=== PATIENT | male | born 1970 | race Caucasian/White ===

== ENCOUNTER → 2020-12-18 | Outpatient (CLI) | payer MEDICARE, OTHER ==
--- NOTE | 2020-12-18 16:01 | XR ---
EXAMINATION TYPE: XR chest 2V DATE OF EXAM: 12/18/2020 COMPARISON: NONE HISTORY: Presurgical testing TECHNIQUE: Frontal and lateral views of the chest are obtained. FINDINGS: There is no focal air space opacity, pleural effusion, or pneumothorax seen. The cardiac silhouette size is within normal limits. Right hemidiaphragm is mildly elevated. The osseous structu res are intact. IMPRESSION: No acute cardiopulmonary process.
[2020-12-18 22:50] LABS: HCT 47.5 % (39.6-50.0); HGB 14.6 g/dL (13.0-17.0); MCH 26.9 pg (27.0-32.0); MCHC 30.7 g/dL (32.0-37.0); MCV 87.5 fL (80.0-97.0); Mean Platelet Volume 11.2 fL (9.5-12.2); Platelet Count 347 X 10*3/uL (140-440); RBC 5.43 X 10*6/uL (4.40-5.60); RDW 14.6 % (11.5-14.5); WBC 11.17 X 10*3/uL (4.50-10.00)
[2020-12-18 23:26] LABS: Basophils # (M) 0.11 X 10*3/uL (0.00-0.10); Eosinophils # (M) 0 X 10*3/uL (0.04-0.35); Lymphocytes # (M) 2.57 X 10*3/uL (0.90-5.00); Monocytes # (M) 0.34 X 10*3/uL (0.20-1.00); Neutrophils # (M) 8.15 X 10*3/uL (2.00-8.90); Neutrophils % (M) 73 %
[2020-12-19 01:00] LABS: ALT 9 U/L (10-49); AST 19 U/L (14-35); African American GFR (CKD) 127.2 (60.0-200.0); Albumin/Globulin Ratio 1.35 (1.60-3.17); Alkaline Phosphatase 73 U/L (41-126); BUN/Creat Ratio 21.26 Ratio (12.00-20.00); Blood Urea Nitrogen 15.5 mg/dL (9.0-27.0); Calcium 9.6 mg/dL (8.7-10.3); Carbon Dioxide 23.5 mmol/L (21.6-31.8); Chloride 102 mmol/L (96-109); Globulin 2.9 g/dL (1.6-3.3); Glucose 92 mg/dL (70-110); LDL Cholesterol,Calculated 102.9 mg/dL (0.0-131.0); Non-African American GFR(CKD) 109.8 (60.0-200.0); Potassium 3.5 mmol/L (3.5-5.5); Sodium 142 mmol/L (135-145); Total Bilirubin <0.20 mg/dL (0.30-1.20); Total Protein 6.9 g/dL (6.2-8.2)
== END | disposition home or self-care (01) ==
LOC: LABWHC1 14:33
PROVIDERS: ATTEND Internal Medicine
DX: I10 Essential (primary) hypertension (principal); E66.01 Morbid (severe) obesity due to excess calories; J45.909 Unspecified asthma, uncomplicated; R53.82 Chronic fatigue, unspecified
CPT/HCPCS: 36415; 71046; 80053; 80061; 83036; 84439; 84443; 84481; 85025

== ENCOUNTER 2021-02-01 11:54 | Inpatient (IN) | payer MEDICARE, OTHER ==
[2021-02-01] MEDS ORDERED: IBUPROFEN 600 MG TAB PO STA (12:23)
[2021-02-01] MEDS ORDERED: ACETAMINOPHEN TAB 500 MG TAB PO STA (12:23)
[2021-02-01] MEDS ORDERED: DEXAMETHASONE SOD PHOSPHATE 10 MG/ML 1 ML VIAL IVP STA (12:25)
--- NOTE | 2021-02-01 12:27 | ED ---
General Adult HPI - General Chief complaint: Shortness of Breath Stated complaint: PALMER Time Seen by Provider: 02/01/21 12:00 Source: patient, RN notes reviewed, old records reviewed Mode of arrival: EMS Limitations: no limitations - History of Present Illness Initial comments: This is a 50-year-old male who presents emergency department stating that for the last week he has not been feeling well. Patient states he has a cough shortness of breath. Patient states over the last 2 days the symptoms got considerably worse. Patient states she's had a fever and chills. Patient states his brother has cold as does his daughter. Patient states that he did not get the COVID vaccine or the flu. Denies any chest pain. Patient denies any palpitations. Patient denies abdominal pain patient as nausea vomiting diarrhea. 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 - Related Data Home Medications Medication Instructions Recorded Confirmed Theophylline 12 Hour [Christiano-Dur] 300 mg PO BID 06/20/13 06/05/14 Verapamil HCl [Verapamil ER] 240 mg PO DAILY 06/20/13 06/05/14 hydroCHLOROthiazide [Hydrodiuril] 50 mg PO DAILY 06/20/13 06/05/14 Cholecalciferol (Vitamin D3) 5,000 units PO BID 06/04/14 06/05/14 [Vitamin D3] Cyanocobalamin [Vitamin B-12 1,000 mcg PO DAILY 06/04/14 06/05/14 Injection] Ibuprofen [Motrin] 800 mg PO Q8HR PRN 06/04/14 06/05/14 Potassium Gluconate [Potassium 595 mg PO BID 06/04/14 06/05/14 Gluconate ER] Ubidecarenone [Co Q-10] 30 mg PO DAILY 06/04/14 06/05/14 Vitamin B Complex 1 cap PO DAILY 06/04/14 06/05/14 Coral Calcium 500mg Caps 500 mg PO BID 06/05/14 06/05/14 Folic Acid 800mcg 800 mcg PO DAILY 06/05/14 06/05/14 Healthy Eyes Cap 1 each PO DAILY 06/05/14 06/05/14 Salmeterol Xinafoate [Serevent 1 puff IH DAILY PRN 06/05/14 06/05/14 Diskus] Previous Rx's Medication Instructions Recorded Ibuprofen [Motrin] 800 mg PO TID tab 06/06/14 Allergies Allergy/AdvReac Type Severity Reaction Status Date / Time meperidine HCl [From Demerol] Allergy Unknown Verified 02/01/21 12:37 codeine AdvReac Hallucinati Verified 02/01/21 12:37 ons Review of Systems ROS Statement: Those systems with pertinent positive or pertinent negative responses have been documented in the HPI. ROS Other: All systems not noted in ROS Statement are negative. Past Medical History Past Medical History: Asthma, Hypertension Additional Past Medical History / Comment(s): OBESITY History of Any Multi-Drug Resistant Organisms: None Reported Past Surgical History: No Surgical Hx Reported Past Psychological History: No Psychological Hx Reported Smoking Status: Never smoker Past Alcohol Use History: Occasional Past Drug Use History: None Reported General Exam - General Exam Comments Initial Comments: GENERAL: Patient is well-developed and well-nourished. Patient is nontoxic and well- hydrated and is in mild distress. ENT: Neck is soft and supple. No significant lymphadenopathy is noted. Oropharynx is clear. Moist mucous membranes. Neck has full range of motion without eliciting any pain. EYES: The sclera were anicteric and conjunctiva were pink and moist. Extraocular movements were intact and pupils were equal round and reactive to light. Eyelids were unremarkable. PULMONARY: Unlabored respirations. Good breath sounds bilaterally. No audible rales rhonchi or wheezing was noted. CARDIOVASCULAR: There is a regular rate and rhythm without any murmurs gallops or rubs. ABDOMEN: Soft and nontender with normal bowel sounds. SKIN: Skin is clear with no lesions or rashes and otherwise unremarkable. NEUROLOGIC: Patient is alert and oriented x3. Cranial nerves II through XII are grossly intact. Motor and sensory are also intact. Normal speech, volume and content. Symmetrical smile. MUSCULOSKELETAL: Normal extremities with adequate strength and full range of motion. Chronic cellulitis and lymphedema of bilateral legs. LYMPHATICS: No significant lymphadenopathy is noted PSYCHIATRIC: Normal psychiatric evaluation. Limitations: no limitations Course Vital Signs 02/01/21 02/01/21 02/01/21 12:02 12:17 12:18 Temperature 101.3 F H Pulse Rate 104 H Respiratory 24 24 Rate Blood Pressure 152/88 O2 Sat by Pulse 89 L 94 L Oximetry 02/01/21 02/01/21 12:35 13:42 Temperature 99.5 F Pulse Rate 97 Respiratory 22 Rate Blood Pressure 131/84 O2 Sat by Pulse 91 L 90 L Oximetry Medical Decision Making - Medical Decision Making Chest x-ray shows bilateral infiltrates Patient received Motrin and Tylenol and Decadron in the emergenc EKG shows normal sinus rhythm at 92 bpm ME interval 166 QRS is 110 QT interval 370 QTC is 457. Patient's EKG shows Q waves in 3 and aVF. y department. Patient also received monoclonal antibodies. After the monoclonal antibodies were given the patient was unable to maintain his sats above 90 and it was at this point time that I decided the patient needed to be admitted. I spoke with Dr. Moreno he agreed to place the patient observation. - Lab Data Result diagrams: 02/01/21 12:02/01/21 12:30 Lab Results 02/01/21 02/01/21 02/01/21 Range/Units 12:17 12:30 12:30 WBC 4.4 (3.8-10.6) k/uL RBC 4.73 (4.30-5.90) m/uL Hgb 13.7 (13.0-17.5) gm/dL Hct 40.6 (39.0-53.0) % MCV 85.7 (80.0-100.0) fL MCH 28.9 (25.0-35.0) pg MCHC 33.7 (31.0-37.0) g/dL RDW 13.7 (11.5-15.5) % Plt Count 167 (150-450) k/uL MPV 8.5 Neutrophils % 75 % Lymphocytes % 18 % Monocytes % 6 % Eosinophils % 0 % Basophils % 0 % Neutrophils # 3.3 (1.3-7.7) k/uL Lymphocytes # 0.8 L (1.0-4.8) k/uL Monocytes # 0.3 (0-1.0) k/uL Eosinophils # 0.0 (0-0.7) k/uL Basophils # 0.0 (0-0.2) k/uL Sodium 132 L (137-145) mmol/L Potassium 3.3 L (3.5-5.1) mmol/L Chloride 96 L (98-107) mmol/L Carbon Dioxide 27 (22-30) mmol/L Anion Gap 9 mmol/L BUN 12 (9-20) mg/dL Creatinine 0.59 L (0.66-1.25) mg/dL Est GFR (CKD-EPI)AfAm >90 (>60 ml/min/1.73 sqM) Est GFR (CKD-EPI)NonAf >90 (>60 ml/min/1.73 sqM) Glucose 126 H (74-99) mg/dL Calcium 8.2 L (8.4-10.2) mg/dL Total Bilirubin 0.5 (0.2-1.3) mg/dL AST 48 (17-59) U/L ALT 14 (4-49) U/L Alkaline Phosphatase 49 (38-126) U/L Total Protein 6.3 (6.3-8.2) g/dL Albumin 3.2 L (3.5-5.0) g/dL Coronavirus (PCR) Detected A (Not Detectd) Disposition Clinical Impression: Pneumonia due to COVID-19 virus Disposition: ADMITTED IP TO THIS [facility] Referrals: Francisca Torrez MD [Primary Care Provider] - 1-2 days Time of Disposition: 13:13
[2021-02-01 12:41] LABS: Basophils % (A) 0 %; Eosinophils % (A) 0 %; HCT 40.6 % (39.0-53.0); HGB 13.7 gm/dL (13.0-17.5); Lymphocytes # (A) 0.8 k/uL (1.0-4.8); Lymphocytes % (A) 18 %; MCH 28.9 pg (25.0-35.0); MCHC 33.7 g/dL (31.0-37.0); MCV 85.7 fL (80.0-100.0); Mean Platelet Volume 8.5; Monocytes # (A) 0.3 k/uL (0-1.0); Monocytes % (A) 6 %; Neutrophils # (A) 3.3 k/uL (1.3-7.7); Neutrophils % (A) 75 %; Platelet Count 167 k/uL (150-450); RBC 4.73 m/uL (4.30-5.90); RDW 13.7 % (11.5-15.5); WBC 4.4 k/uL (3.8-10.6)
[2021-02-01 12:55] LABS: ALT 14 U/L (4-49); AST 48 U/L (17-59); African American GFR (CKD) >90 (>60 ml/min/1.73 sqM); Albumin 3.2 g/dL (3.5-5.0); Alkaline Phosphatase 49 U/L (38-126); Anion Gap 9 mmol/L; Blood Urea Nitrogen 12 mg/dL (9-20); Calcium 8.2 mg/dL (8.4-10.2); Carbon Dioxide 27 mmol/L (22-30); Chloride 96 mmol/L (98-107); Glucose 126 mg/dL (74-99); Non-African American GFR(CKD) >90 (>60 ml/min/1.73 sqM); Potassium 3.3 mmol/L (3.5-5.1); Sodium 132 mmol/L (137-145); Total Bilirubin 0.5 mg/dL (0.2-1.3); Total Protein 6.3 g/dL (6.3-8.2)
--- NOTE | 2021-02-01 13:03 | XR ---
EXAMINATION TYPE: XR chest 2V DATE OF EXAM: 02/01/2021 COMPARISON: 12/18/2020 TECHNIQUE: PA and lateral views submitted. HISTORY: Difficulty breathing FINDINGS: Diffuse bilateral interstitial infiltrates with areas of subsegmental consolidation. Small right effu mars. No pneumothorax. Limited inspiration. Heart size normal. Degenerative change of the spine. IMPRESSION: 1. Bilateral infiltrate correlate for interstitial and alveolar pneumonia.
[2021-02-01] MEDS ORDERED: SODIUM CHLORIDE 0.9% 50 ML IVPB ONE (13:30)
[2021-02-01] MEDS ORDERED: BAMLANIVIMAB (EUA) 700 MG, ETESEVIMAB (EUA) 1,400 MG in SODIUM CHLORIDE 0.9% 50 ML IVPB ONE (13:30)
[2021-02-01] MEDS ORDERED: ALPRAZolam 0.25 MG TAB PO PRN (15:53)
[2021-02-01] MEDS ORDERED: Magnesium Replacement Protocol 1 EACH MISC MISCELLANE PRN (16:08)
[2021-02-01] MEDS ORDERED: Potassium Replacement Protocol 1 EACH MISC MISCELLANE PRN (16:08)
--- NOTE | 2021-02-01 16:51 | HP ---
HISTORY AND PHYSICAL DATE OF SERVICE: 02/01/2021 CHIEF COMPLAINT: Shortness of breath and cough. HISTORY OF PRESENT ILLNESS: This 50-year-old gentleman with a past medical history of multiple medical problems including asthma, hypertension, obesity, history of chronic venous stasis and chronic leg ulcers, being followed by Dr. Torrez in the outpatient setting, not feeling well for the past 1 week. The patient has some cough, some shortness of breath. The patient also having some fever and chills. The patient did not get the Covid vaccine. Patient apparently had contact with family members who had Covid and the patient came to [facility] and admitted to the hospital for further evaluation and treatment. The evaluation showed pulse ox is about 91% on 3 L and CBC within normal limits except lymphopenia. Sodium is 132. Covid 19 positive and the patient admitted for further evaluation and treatment. A chest x-ray was done which I reviewed personally in the ER showed probably bilateral Covid 19 early pneumonia and the patient admitted for further evaluation and treatment. A consultation of BAM is also being done at this time. There is no history of any headache, loss of consciousness or seizures at this time. No chest pain. No palpitations. PAST MEDICAL HISTORY: Asthma, hypertension, obesity. MEDICATIONS PRIOR TO ADMISSION: Home medications are reviewed and include: HydroDIURIL, verapamil, Christiano-Dur, Singulair, Motrin, iron sulfate, Zyrtec, doses reviewed. ALLERGIES: HONEY, CODEINE, PORK, SHELLFISH. FAMILY HISTORY: No history of heart disease or strokes in the family. SOCIAL HISTORY: Occasional alcohol intake. No history of smoking. REVIEW OF SYSTEMS: ENT: No diminished vision. No diminished hearing. CARDIOVASCULAR system as mentioned earlier. RESPIRATORY: As mentioned earlier. GI no nausea or vomiting. no dysuria. NERVOUS SYSTEM: No numbness or weakness. ALLERGY/IMMUNOLOGY: As mentioned earlier. HEMATOLOGY/ONCOLOGY: No history of any anemia. ENDOCRINE: No history of diabetes or hypothyroidism. CONSTITUTIONAL: As mentioned earlier. DERMATOLOGY: Negative. RHEUMATOLOGY: Negative. PSYCHIATRIC: As mentioned earlier. PHYSICAL EXAMINATION: Alert and oriented times three. Pulse 97, blood pressure 131/84, respiration 22, temperature 99.4, pulse ox 93 percent on 3 L. HEENT: Conjunctivae normal. Oral mucosa moist. NECK is no jugular venous distention. No carotid bruit. No lymph node enlargement. CARDIOVASCULAR: S1, S2. RESPIRATION: Breath sounds diminished in the bases. A few scattered rhonchi. ABDOMEN: Soft, obese, nontender. LEGS: Bilateral leg edema. Chronic leg ulcers and significant chronic changes also present. The patient is morbidly obese. NERVOUS SYSTEM: Higher functions as mentioned earlier. No focal motor or sensory deficits. LYMPHATICS: No lymph nodes palpable in the neck, axillae or groin. SKIN: Skin as mentioned. JOINTS: No active deforming arthropathy. LABS: CBC within normal limits except lymphopenia 0.9. Sodium 132. Potassium 3.2. Other labs are noted. Chest x-ray personally reviewed. ASSESSMENT: 1. Acute Covid 19 infection with acute bilateral interstitial pneumonia with acute hypoxic respiratory failure. 2. Lymphopenia. 3. Hyponatremia. 4. Hypokalemia. 5. Super morbid obesity with body mass index of 77.8. 6. History of asthma, chronic, intermittent. 7. Hypertension. 8. Obesity. 9. FULL CODE. RECOMMENDATIONS AND DISCUSSION: This 50-year-old gentleman who presented with multiple complex medical issues, we will monitor the patient closely. Continue the current management and symptomatic treatment. Otherwise at this time, we will initiate steroids and Lovenox and usual Covid protocol. Pulmonary and Infectious Disease evaluation. Patient might be a candidate for BAM or Remdesivir or a combination of both. We will continue to monitor. Prognosis extremely guarded because of the multiple complex medical issues. Further recommendations to follow. See orders for details. A copy of dictation forwarded to Dr. Torrez who is the primary physician. MMODL / IJN: [id number] /
[2021-02-01] MEDS: CHOLECALCIFEROL 25 MCG (1000 IU) TABLET PO SCH (17:59)
[2021-02-01] MEDS: ASCORBIC ACID 500 MG TAB PO SCH (17:59)
[2021-02-01] MEDS: ENOXAPARIN 40 MG/0.4 ML SYRINGE SQ SCH (18:00)
[2021-02-01] MEDS: ZINC SULFATE 220 MG CAP PO SCH (18:00)
[2021-02-01 18:11] LABS: C Reactive Protein 5.5 mg/dL (<1.0)
[2021-02-01] MEDS ORDERED: ALBUTEROL HFA INHALER INHALATION SCH (20:00)
[2021-02-01] MEDS ORDERED: REMDESIVIR 200 MG in SODIUM CHLORIDE 0.9% 250 ML IVPB ONE (21:00)
[2021-02-01] MEDS ORDERED: VERAPAMIL SR 120 MG TABLET.ER PO SCH (21:00)
--- NOTE | 2021-02-01 23:15 | P.CONS ---
History of Present Illness - Reason for Consult Consult date: 02/01/21 covid 19 pneumonia Requesting physician: Saige Moreno - Chief Complaint shortness of breath worse x 2 days - History of Present Illness History of present illness : Patient is 50-year-old male with a past medical significant bilateral extremity elephantiasis in this patient presenting to the ER this afternoon for evaluation of not feeling well increasing shortness of breath and a cough in this patient symptom is going on for about a week however over the last 2 days patient symptom has been getting worse, patient been complaining of increasing shortness of breath on minimal exertion and even at rest patient also have a cough which is moderate intensity no purulent sputum no pleuritic chest pain nausea decreased oral intake but no vomiting no abdominal pain did have some diarrhea on presentation the hospital did have a fever of 101 F patient was hypoxic with O2 sats of 89% on room air patient did have a normal white count with lymphopenia D-dimer was normal creatinine was normal liver exams are normal CRP was elevated did have a positive Covid test patient did have a chest x-ray bilateral infiltrate correlate for this patient and if Pneumonia patient was admitted to hospital infectious disease was consulted for further management Review of system: CONSTITUTIONAL: Positive for weakness along with the fever. EYES: No complaint. ENT: No complaint. RESPIRATORY: As per history of present illness CARDIOVASCULAR: No complaint. GENITOURINARY: No complaint. GASTROINTESTINAL: As per history of present illness. MUSCULOSKELETAL: No complaint. INTEGUMENTARY: No complaint. PSYCHOLOGIC: No complaint. ENDOCRINE: No complaint. NEUROLOGIC: No complaint. Past medical history : Reviewed, documented below Past surgical history : Reviewed, documented below Social history: Reviewed, documented below Medications: Reviewed, as documented below EXAMINATION: Vital sigans= Reviewed and documented below GENERAL DESCRIPTION: Middle-aged male lying in bed, no distress. No tachypnea or accessory muscle of respiration use. HEENT: Shows Pallor , no scleral icterus. Oral mucous membrane is dry. NECK: Trachea central, no thyromegaly. LUNGS: Unlabored breathing. Decrease intensity of breath sounds. No wheeze or crackle. HEART: S1, S2, regular rate and rhythm. ABDOMEN: Soft, no tenderness , guarding or rigidity EXTREMITIES: Significant swelling to bilateral lower extremity in this we did have some superficial skin right leg no slough tissue or drainage SKIN: No rash, no masses palpable. NEUROLOGICAL: The patient is awake, alert, oriented x3, mood and affect normal. LABS AND RADIOLOGY: Reviewed results see below Assessment : 1-patient presented to hospital with weakness increasing shortness of breath cough in this patient symptom has been going on for about a week worsening over the last 2 days with evidence of multifocal pneumonia secondary to COVID-19 infection and the patient is currently within the therapeutic window for remdesivir 2-bilateral lower extremity elephantiasis with some superficial ulcer right leg no significant cellulitis Plan: 1-patient was started on remdesivir 5-day protocol 2-dexamethasone her Lovenox zinc and ascorbic acid 3-droplet isolation respiratory support 4-Aquacel silver dressing to the right lower extremity wound change every 48 hour We will follow on clinical condition and cultures to further adjust medication if needed Thank you for this consultation we will follow the patient along with you Past Medical History Past Medical History: Asthma, Hypertension Additional Past Medical History / Comment(s): OBESITY History of Any Multi-Drug Resistant Organisms: None Reported Past Surgical History: No Surgical Hx Reported Past Psychological History: No Psychological Hx Reported Smoking Status: Never smoker Past Alcohol Use History: Occasional Past Drug Use History: None Reported Medications and Allergies Home Medications Medication Instructions Recorded Confirmed Type Theophylline 12 Hour [Christiano-Dur] 300 mg PO BID 06/20/13 02/01/21 History Cetirizine HCl [Zyrtec] 10 mg PO DAILY 02/01/21 02/01/21 History Ferrous Sulfate [Feosol] 325 mg PO DAILY 02/01/21 02/01/21 History Ibuprofen [Motrin] 800 mg PO Q8H PRN 02/01/21 02/01/21 History Montelukast [Singulair] 10 mg PO HS 02/01/21 02/01/21 History Verapamil HCl [Verapamil ER] 240 mg PO HS 02/01/21 02/01/21 History hydroCHLOROthiazide [Hydrodiuril] 25 mg PO BID 02/01/21 02/01/21 History Allergies Allergy/AdvReac Type Severity Reaction Status Date / Time honey Allergy Anaphylaxis Verified 02/01/21 14:02 meperidine HCl [From Demerol] Allergy Unknown Verified 02/01/21 13:58 codeine AdvReac Hallucinati Verified 02/01/21 13:58 ons Pork/Porcine Containing AdvReac Vomiting Verified 02/01/21 14:02 Products [Pork] shellfish derived [Shellfish] AdvReac Vomiting Verified 02/01/21 14:02 Physical Exam Vitals: Vital Signs Temp Pulse Resp BP Pulse Ox 02/01/21 13:42 99.5 F 97 22 131/84 90 L 02/01/21 12:35 91 L 02/01/21 12:18 24 02/01/21 12:17 94 L 02/01/21 12:02 101.3 F H 104 H 24 152/88 89 L Intake and Output 02/01/21 02/01/21 02/01/21 06:59 14:59 22:59 Other: Weight 245.847 kg Results CBC & Chem 7: 02/01/21 12:30 02/01/21 12:30 Labs: Abnormal Lab Results - Last 24 Hours (Table) 02/01/21 02/01/21 02/01/21 Range/Units 12:17 12:30 12:30 Lymphocytes # 0.8 L (1.0-4.8) k/uL Sodium 132 L (137-145) mmol/L Potassium 3.3 L (3.5-5.1) mmol/L Chloride 96 L (98-107) mmol/L Creatinine 0.59 L (0.66-1.25) mg/dL Glucose 126 H (74-99) mg/dL Calcium 8.2 L (8.4-10.2) mg/dL Albumin 3.2 L (3.5-5.0) g/dL Coronavirus (PCR) Detected A (Not Detectd)
[2021-02-01] MEDS: hydroCHLOROthiazide 25 MG TAB PO SCH (23:51)
[2021-02-01] MEDS: THEOPHYLLINE 24 HOUR 300 MG CAP.ER.24H PO SCH (23:51)
[2021-02-01] MEDS: MONTELUKAST 10 MG TAB PO SCH (23:53)
[2021-02-02] MEDS: ASCORBIC ACID 500 MG TAB PO SCH ×3 (01:13→21:01)
[2021-02-02] MEDS: ZINC SULFATE 220 MG CAP PO SCH (08:19)
[2021-02-02] MEDS: LORATADINE 10 MG TAB PO SCH (08:20)
[2021-02-02] MEDS: CHOLECALCIFEROL 25 MCG (1000 IU) TABLET PO SCH (08:20)
[2021-02-02] MEDS: hydroCHLOROthiazide 25 MG TAB PO SCH ×2 (08:20→21:01)
[2021-02-02] MEDS: ENOXAPARIN 40 MG/0.4 ML SYRINGE SQ SCH (08:20)
[2021-02-02] MEDS: PANTOPRAZOLE 40 MG TABLET PO SCH (08:20)
[2021-02-02] MEDS: FERROUS SULFATE 325 MG TAB PO SCH (08:20)
[2021-02-02] MEDS: dexAMETHasone 2 MG TAB PO SCH (08:20)
[2021-02-02] MEDS: ALBUTEROL HFA INHALER INHALATION SCH ×4 (09:38→21:41)
[2021-02-02 10:55] LABS: Basophils # (A) 0.01 X 10*3/uL (0.00-0.10); Basophils % (A) 0.2 %; Eosinophils # (A) 0 X 10*3/uL (0.04-0.35); Eosinophils % (A) 0 %; HCT 42.1 % (39.6-50.0); HGB 13.4 g/dL (13.0-17.0); Lymphocytes # (A) 0.77 X 10*3/uL (0.90-5.00); Lymphocytes % (A) 13.9 %; MCH 27.2 pg (27.0-32.0); MCHC 31.8 g/dL (32.0-37.0); MCV 85.4 fL (80.0-97.0); Mean Platelet Volume 11.2 fL (9.5-12.2); Monocytes # (A) 0.47 X 10*3/uL (0.20-1.00); Monocytes % (A) 8.5 %; Neutrophils # (A) 4.22 X 10*3/uL (1.80-7.70); Neutrophils % (A) 76.3 %; Platelet Count 170 X 10*3/uL (140-440); RBC 4.93 X 10*6/uL (4.40-5.60); RDW 13.6 % (11.5-14.5); WBC 5.53 X 10*3/uL (4.50-10.00)
[2021-02-02] MEDS: METOPROLOL TARTRATE 25 MG TAB PO SCH ×2 (11:20→21:01)
--- NOTE | 2021-02-02 11:25 | P.CRDCN ---
History of Present Illness Consult date: 02/02/21 History of present illness: CHIEF COMPLAINT: V. tach HISTORY OF PRESENT ILLNESS: This is a 50-year-old male with a past medical history significant for asthma, hypertension, and morbid obesity. 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 We have been asked to see the patient in consultation for ventricular tachycardia. The patient presented to the hospital with a chief complaint of not feeling well, cough, shortness of breath, and fever. The patient was found to be positive for Covid. The patient is not vaccinated. Patient remains hemodynamically stable. He is on 2 L nasal cannula with oxygen saturations greater than 92%. Blood pressure 154/76. Heart rate is in the 70s. Telemetry reveals sinus mechanism. He did have a run of nonsustained ventricular tachycardia. DIAGNOSTICS: EKG reveals sinus rhythm with nonspecific ST-T wave changes Chest xray bilateral infiltrates. Correlate for interstitial and alveolar pneumonia. Laboratory data: WBC 5.5. Hemoglobin 13.4. White count 170. D-dimer 0.55. Sodium 132. Potassium 3.3. BUN 12. Creatinine 0.59. Troponin negative 2. Current home cardiac medications include []. REVIEW OF SYSTEMS: Thorough review of systems not completed secondary to limited evaluation/examination due to Covid19 PHYSICAL EXAM: Thorough physical exam not completed secondary to limited evaluation/examination due to Covid19 ASSESSMENT: Covid pneumonia Nonsustained ventricle tachycardia Hypokalemia Asthma Hypertension Morbid obesity: BMI 77.8 PLAN: Obtain 2D echo to assess cardiac structure and function Continue telemetry monitoring Patient's potassium was supplemented yesterday. Await repeat labs from this morning Discontinue verapamil Begin metoprolol 25 mg twice a day Further recommendations pending patient's course Nurse practitioner note has been reviewed by physician. Signing provider agrees with the documented findings, assessment, and plan of care. Past Medical History Past Medical History: Asthma, Hypertension Additional Past Medical History / Comment(s): OBESITY History of Any Multi-Drug Resistant Organisms: None Reported Past Surgical History: No Surgical Hx Reported Past Psychological History: No Psychological Hx Reported Smoking Status: Never smoker Past Alcohol Use History: Occasional Past Drug Use History: None Reported Medications and Allergies Home Medications Medication Instructions Recorded Confirmed Type Theophylline 12 Hour [Christiano-Dur] 300 mg PO BID 06/20/13 02/01/21 History Cetirizine HCl [Zyrtec] 10 mg PO DAILY 02/01/21 02/01/21 History Ferrous Sulfate [Feosol] 325 mg PO DAILY 02/01/21 02/01/21 History Ibuprofen [Motrin] 800 mg PO Q8H PRN 02/01/21 02/01/21 History Montelukast [Singulair] 10 mg PO HS 02/01/21 02/01/21 History Verapamil HCl [Verapamil ER] 240 mg PO HS 02/01/21 02/01/21 History hydroCHLOROthiazide [Hydrodiuril] 25 mg PO BID 02/01/21 02/01/21 History Allergies Allergy/AdvReac Type Severity Reaction Status Date / Time honey Allergy Anaphylaxis Verified 02/01/21 14:02 meperidine HCl [From Demerol] Allergy Unknown Verified 02/01/21 13:58 codeine AdvReac Hallucinati Verified 02/01/21 13:58 ons Pork/Porcine Containing AdvReac Vomiting Verified 02/01/21 14:02 Products [Pork] shellfish derived [Shellfish] AdvReac Vomiting Verified 02/01/21 14:02 Physical Exam Vitals: Vital Signs Temp Pulse Pulse Resp BP BP Pulse Ox 02/02/21 09:38 96 02/02/21 09:18 98.4 F 79 20 154/76 90 L 02/02/21 08:00 18 02/02/21 05:36 98.3 F 71 130/73 88 L 02/02/21 01:31 97.8 F 71 136/79 89 L 02/01/21 20:34 97.9 F 78 18 156/91 93 L 02/01/21 20:00 98.2 F 73 149/80 93 L 02/01/21 18:01 98.2 F 76 18 141/89 92 L 02/01/21 13:42 99.5 F 97 22 131/84 90 L 02/01/21 12:35 91 L 02/01/21 12:18 24 02/01/21 12:17 94 L 02/01/21 12:02 101.3 F H 104 H 24 152/88 89 L Intake and Output 02/01/21 02/02/21 02/02/21 22:59 06:59 14:59 Output Total 2080 Balance -2079 Output: Urine 2080 Other: Voiding Method Urinal Urinal # Voids 2 # Bowel Movements 0 Weight 245.847 kg Results 02/02/21 07:37 02/01/21 12:30 Cardiac Enzymes 02/01/21 02/01/21 02/01/21 Range/Units 12:30 12:30 17:00 AST 48 (17-59) U/L Lactate Dehydrogenase 775 H (313-618) U/L Troponin I <0.012 (0.000-0.034) ng/mL 02/01/21 Range/Units 17:00 AST (17-59) U/L Lactate Dehydrogenase (313-618) U/L Troponin I <0.012 (0.000-0.034) ng/mL CBC 02/01/21 02/02/21 Range/Units 12:30 07:37 WBC 4.4 5.53 (3.8-10.6) k/uL RBC 4.73 4.93 (4.30-5.90) m/uL Hgb 13.7 13.4 (13.0-17.5) gm/dL Hct 40.6 42.1 (39.0-53.0) % Plt Count 167 170 (150-450) k/uL Comprehensive Metabolic Panel 02/01/21 Range/Units 12:30 Sodium 132 L (137-145) mmol/L Potassium 3.3 L (3.5-5.1) mmol/L Chloride 96 L (98-107) mmol/L Carbon Dioxide 27 (22-30) mmol/L BUN 12 (9-20) mg/dL Creatinine 0.59 L (0.66-1.25) mg/dL Glucose 126 H (74-99) mg/dL Calcium 8.2 L (8.4-10.2) mg/dL AST 48 (17-59) U/L ALT 14 (4-49) U/L Alkaline Phosphatase 49 (38-126) U/L Total Protein 6.3 (6.3-8.2) g/dL Albumin 3.2 L (3.5-5.0) g/dL Current Medications Generic Name Dose Route Start Last Admin Trade Name Freq PRN Reason Stop Dose Admin Albuterol Sulfate 2 puff 02/02/21 08:00 02/02/21 09:38 Albuterol Hfa Inhaler INHALATION 2 puff RT-QID ELYSE Administration Alprazolam 0.25 mg 02/01/21 15:53 Alprazolam 0.25 Mg Tab PO TID PRN Anxiety Ascorbic Acid 500 mg 02/01/21 21:00 02/02/21 08:23 Ascorbic Acid 500 Mg Tab PO 500 mg BID ELYSE Administration Cholecalciferol 25 mcg 02/01/21 16:15 02/02/21 08:20 Cholecalciferol 25 Mcg (1000 Iu) Tablet PO 25 mcg DAILY ELYSE Administration Dexamethasone 6 mg 02/02/21 09:00 02/02/21 08:20 Dexamethasone 2 Mg Tab PO 6 mg DAILY ELYSE Administration Enoxaparin Sodium 40 mg 02/01/21 16:00 02/02/21 08:20 Enoxaparin 40 Mg/0.4 Ml Syringe SQ 40 mg Q24HR ELYSE Administration Ferrous Sulfate 325 mg 02/02/21 09:00 02/02/21 08:20 Ferrous Sulfate 325 Mg Tab PO 325 mg DAILY ELYSE Administration Hydrochlorothiazide 25 mg 02/01/21 21:00 02/02/21 08:20 Hydrochlorothiazide 25 Mg Tab PO 25 mg BID ELYSE Administration Remdesivir 100 mg/ Sodium 250 mls @ 250 mls/hr 02/02/21 21:00 Chloride IVPB 02/05/21 21:59 DAILY@2100 ELYSE Loratadine 10 mg 02/02/21 09:00 02/02/21 08:20 Loratadine 10 Mg Tab PO 10 mg DAILY ELYSE Administration Metoprolol Tartrate 25 mg 02/02/21 10:45 Metoprolol Tartrate 25 Mg Tab PO BID [facility] Miscellaneous Information 1 each 02/01/21 16:08 Magnesium Replacement Protocol 1 Each Misc MISCELLANE DAILY PRN Per Protocol Protocol Miscellaneous Information 1 each 02/01/21 16:08 Potassium Replacement Protocol 1 Each Misc MISCELLANE DAILY PRN Per Protocol Protocol Montelukast Sodium 10 mg 02/01/21 21:00 02/01/21 23:53 Montelukast 10 Mg Tab PO 10 mg HS ELYSE Administration Pantoprazole Sodium 40 mg 02/02/21 07:30 02/02/21 08:20 Pantoprazole 40 Mg Tablet PO 40 mg [id number] ELYSE Administration Theophylline 600 mg 02/01/21 21:00 02/01/21 23:51 Theophylline 24 Hour 300 Mg Cap.Er.24h PO 600 mg HS ELYSE Administration Zinc Sulfate 220 mg 02/01/21 16:15 02/02/21 08:19 Zinc Sulfate 220 Mg Cap PO 220 mg DAILY ELYSE Administration Intake and Output 02/01/21 02/02/21 02/02/21 22:59 06:59 14:59 Output Total 2079 Output: Urine 2079 Other: Voiding Method Urinal Urinal # Voids 2 # Bowel Movements 0 Weight 245.847 kg 02/02/21 07:37 02/01/21 12:30
--- NOTE | 2021-02-02 11:35 | ECHOF ---
Referral Reason:[facility] function, [facility] MEASUREMENTS -------- HEIGHT: 157.5 cm WEIGHT: 247.2 kg BP: RVIDd: 3.8 cm (< 3.3) IVSd: 1.3 cm (0.6 - 1.1) LVIDd: 4.7 cm (3.9 - 5.3) LVPWd: 1.5 cm (0.6 - 1.1) IVSs: 2.0 cm LVIDs: 3.0 cm LVPWs: 1.8 cm LA Diam: 3.3 cm (2.7 - 3.8) FINDINGS -------- Sinus rhythm. Morbid Obesity Pt is Covid Positive: Lv function. There is mild concentric left ventricular hypertrophy. Overall left ventricular systolic function i s low-normal with, an EF between 50 - 55 %. The right ventricle is mild to moderately enlarged. 5.0mg OF Lumason UTLIZED: 2 OR MORE WALL SEGMENTS NOT VISUALIZED. The aortic valve was not well visualized. The mitral valve was not well visualized. The tricuspid valve was not well visualized. Unable to estimate RVSP due to inadequate TR jet spect ral doppler profile. The pulmonic valve was not well visualized. CONCLUSIONS -------- 1. Morbid Obesity 2. There is mild concentric left ventricular hypertrophy. 3. Overall left ventricular systolic function is low-normal with, an EF between 50 - 55 %. 4. The right ventricle is mild to moderately enlarged. 5. 5.0mg OF Lumason UTLIZED: 2 OR MORE WALL SEGMENTS NOT VISUALIZED. 6. The aortic valve was not well visualized. 7. The mitral valve was not well visualized. 8. The tricuspid valve was not well visualized. 9. Unable to estimate RVSP due to inadequate TR jet spectral doppler profile. 10. The pulmonic valve was not well visualized. CREDIT COLLECTIONS CLERK: Olivia Mcmahon RDCS
[2021-02-02 11:44] LABS: African American GFR (CKD) 141.7 (60.0-200.0); Albumin 3.3 g/dL (3.8-4.9); Albumin/Globulin Ratio 1.22 (1.60-3.17); Anion Gap 12.4 mmol/L (10.00-18.00); BUN/Creat Ratio 18.89 Ratio (12.00-20.00); Blood Urea Nitrogen 10.6 mg/dL (9.0-27.0); Calcium 8.5 mg/dL (8.7-10.3); Carbon Dioxide 26.2 mmol/L (20.0-27.5); Globulin 2.7 g/dL (1.6-3.3); Non-African American GFR(CKD) 122.2 (60.0-200.0); Potassium 3.4 mmol/L (3.5-5.5); Total Bilirubin 0.3 mg/dL (0.30-1.20)
[2021-02-02] MEDS ORDERED: Potassium Replacement Protocol 1 EACH MISC MISCELLANE PRN (11:52)
[2021-02-02] MEDS: POTASSIUM BICARB-CITRIC ACID 25 MEQ TABLET.EFF PO SCH (12:48)
[2021-02-02] MEDS ORDERED: POTASSIUM CHLORIDE ER 20 MEQ TAB.ER PO SCH (13:00)
--- NOTE | 2021-02-02 15:25 | P.CNPUL ---
History of Present Illness Consult date: 02/02/21 Requesting physician: Saige Moreno Reason for consult: dyspnea, cough, hypoxemia, pneumonia, abnormal CXR/CT Chief complaint: Shortness of breath, cough, fever, chills. History of present illness: Pulmonary consult dated 02/02/2021. 50-year-old male, that I'm seeing in consultation. The patient is in room 471. The patient came to the emergency room, on February 01, complaining of shortness of breath. In addition, the patient had cough, fever, chills, poor oral intake, and dehydration. The patient hasn't been feeling well for at least 8-10 days. The patient was recently diagnosed as having coronavirus pneumonia. The patient tested positive on February 01. The patient has not received vaccination against coronavirus. The patient has history of asthma, obesity, and hypertension. He is a lifelong nontobacco user. He is currently not receiving any IV fluids. He is on nasal O2 at 5 L/m. White count 5.53, hemoglobin 13.4, hematocrit 42.1, platelet count 170,000. D-dimer is 0.55. Sodium 135, potassium 3.4, chlorides 96, CO2 26, anion gap 12, BUN 11, and creatinine 0.6. The patient's pro-calcitonin level is 0.04. Testing for coronavirus was positive on February 01. Chest x-ray shows diffuse bilateral infiltrates. Review of Systems REVIEW OF SYSTEMS: CONSTITUTIONAL: Fever and chills. NEUROLOGIC: [ Negative.] HEENT: [ Negative.] CARDIAC: [Negative.] PULMONARY: Shortness of breath, cough, chest congestion. GI: Decreased oral intake. : [Negative.] RHEUMATOLOGIC: [ Negative.] IMMUNOLOGIC: [ Negative.] ENDOCRINE: [Negative. ] DERMATOLOGIC: [Negative.] Past Medical History Past Medical History: Asthma, Hypertension Additional Past Medical History / Comment(s): OBESITY History of Any Multi-Drug Resistant Organisms: None Reported Past Surgical History: No Surgical Hx Reported Past Psychological History: No Psychological Hx Reported Smoking Status: Never smoker Past Alcohol Use History: Occasional Past Drug Use History: None Reported Medications and Allergies Home Medications Medication Instructions Recorded Confirmed Type Theophylline 12 Hour [Christiano-Dur] 300 mg PO BID 06/20/13 02/01/21 History Cetirizine HCl [Zyrtec] 10 mg PO DAILY 12/16/21 12/16/21 History Ferrous Sulfate [Feosol] 325 mg PO DAILY 02/01/21 02/01/21 History Ibuprofen [Motrin] 800 mg PO Q8H PRN 02/01/21 02/01/21 History Montelukast [Singulair] 10 mg PO HS 02/01/21 02/01/21 History Verapamil HCl [Verapamil ER] 240 mg PO HS 02/01/21 02/01/21 History hydroCHLOROthiazide [Hydrodiuril] 25 mg PO BID 02/01/21 02/01/21 History Allergies Allergy/AdvReac Type Severity Reaction Status Date / Time honey Allergy Anaphylaxis Verified 02/01/21 14:02 meperidine HCl [From Demerol] Allergy Unknown Verified 02/01/21 13:58 codeine AdvReac Hallucinati Verified 02/01/21 13:58 ons Pork/Porcine Containing AdvReac Vomiting Verified 02/01/21 14:02 Products [Pork] shellfish derived [Shellfish] AdvReac Vomiting Verified 02/01/21 14:02 Physical Exam Osteopathic Statement: *. No significant issues noted on an osteopathic structural exam other than those noted in the History and Physical/Consult. Vitals: Vital Signs Temp Pulse Pulse Resp BP BP Pulse Ox 02/02/21 09:38 96 02/02/21 09:18 98.4 F 79 20 154/76 90 L 02/02/21 08:00 18 02/02/21 05:36 98.3 F 71 130/73 88 L 02/02/21 01:31 97.8 F 71 136/79 89 L 02/01/21 20:34 97.9 F 78 18 156/91 93 L 02/01/21 20:00 98.2 F 73 149/80 93 L 02/01/21 18:01 98.2 F 76 18 141/89 92 L Intake and Output 02/02/21 02/02/21 02/02/21 06:59 14:59 22:59 Output Total 2079 Balance -2079 Output: Urine 2079 Other: Voiding Method Urinal # Voids 2 # Bowel Movements 0 No acute distress, oriented 3. The patient's saturations are 89-90% on 5 L. HEENT examination is grossly unremarkable. Neck supple. Full range of motion. No adenopathy thyromegaly or neck vein distention. Cardiovascular examination reveals regular rhythm rate. S1-S2 normal. No S3 or S4. No discernible murmur noted. Heart sounds are distant. Heart rate 79 bpm. Lungs reveal bilateral rhonchi. No wheezes or crackles. Breath sounds are equal bilaterally. Breath sounds are diminished throughout. Abdomen is obese, with a large pannus. Extremities are intact. No cyanosis or clubbing. Diffuse lower extremity edema is noted. Chronic venous stasis changes are noted as well. Skin is without rash or lesion. Neurologic examination is brief but nonfocal. Results - Laboratory Findings CBC and BMP: 02/02/21 07:37 02/02/21 07:37 PT/INR, D-dimer D-Dimer 0.55 mg/L FEU (<0.60) 02/01/21 17:00 Abnormal lab findings: Abnormal Labs 02/01/21 02/01/21 02/01/21 12:17 12:30 12:30 MCHC Immature Gran # Lymphocytes # 0.8 L Eosinophils # Sodium 132 L Potassium 3.3 L Chloride 96 L Creatinine 0.59 L Glucose 126 H Calcium 8.2 L Ferritin AST Lactate Dehydrogenase C-Reactive Protein Total Protein Albumin 3.2 L Albumin/Globulin Ratio Coronavirus (PCR) Detected A 02/01/21 02/02/21 02/02/21 17:00 07:37 07:37 MCHC 31.8 L Immature Gran # 0.06 H Lymphocytes # 0.77 L Eosinophils # 0 L Sodium Potassium 3.4 L Chloride Creatinine Glucose 127 H Calcium 8.5 L Ferritin 478.0 H AST 36 H Lactate Dehydrogenase 775 H C-Reactive Protein 5.5 H Total Protein 6.0 L Albumin 3.3 L Albumin/Globulin Ratio 1.22 L Coronavirus (PCR) - Diagnostic Findings Chest x-ray: image reviewed Assessment and Plan Assessment: Acute hypoxemic respiratory failure secondary to coronavirus associated pneumonia. Morbid obesity. History of asthma. History of hypertension. Plan: Plan dated 02/02/2021. The patient should be on vitamin C, vitamin D3, and zinc. The patient should also get Decadron, 6 mg a day, and Lovenox 40 mg subcu daily. He is outside the window for REM additional recommendations and suggestions are forthcoming. We will continue to follow make recommendations where appropriate. Prognosis is guarded. His asthma seems not to be active at this time. Time with Patient: Greater than 30
--- NOTE | 2021-02-02 20:31 | PN ---
PROGRESS NOTE DATE OF SERVICE: 02/02/2021 This 50-year-old gentleman admitted with acute COVID-19 pneumonia and acute hypoxic respiratory failure is being closely monitored. At this time the patient continues to be hypoxic. The patient is currently on 5 L nasal cannula, saturation only 89. Patient has significant obesity. Also, the patient is followed by Infectious Disease and Pulmonary. Patient was started on Remdesivir. No chest pain. No palpitations. PAST MEDICAL HISTORY: Reviewed. REVIEW OF SYSTEMS: Cardiovascular system: No angina. Respiratory system: As mentioned earlier. GI: As mentioned earlier. : No dysuria. Nervous system: No numbness or weakness. CURRENT MEDICATIONS: Reviewed include Ventolin. Xanax, vitamin C, vitamin D3, Hexadrol, Lovenox. Doses and other medications reviewed. PHYSICAL EXAMINATION: Alert and oriented x3. Pulse 90, blood pressure 140/84, respiration 22, temperature 98.4, pulse ox 89% on 5 L HEENT: Conjunctivae normal. Oral mucosa moist. NECK: No jugular venous distention. No lymph node enlargement. CARDIOVASCULAR: S1, S2, muffled. No S3, no S4, RESPIRATORY: Diminished breath sounds at the bases. A few scattered rhonchi. ABDOMEN: Soft, nontender. LEGS: No edema, no swelling. NERVOUS SYSTEM: No focal deficits. LABS: Sodium 135, potassium 3.4. Otherwise, the ferritin and other labs are noted. ASSESSMENT: 1. Acute COVID-19 infection with acute bilateral interstitial pneumonia with acute hypoxic respiratory failure. 2. Lymphopenia. 3. Hyponatremia. 4. Hypokalemia. 5. Super morbid obesity with body mass index of 77.8. 6. History of asthma, chronic, intermittent. 7. Hypertension. 8. Obesity. 9. FULL CODE. RECOMMENDATIONS AND DISCUSSION: Recommend to continue current management and symptomatic treatment. Otherwise, at this time I recommend continue with current medications, potassium supplementation. Repeat labs. Otherwise, continue the Remdesivir, continue the rest of medication, bronchodilators. Closely follow with multiple consultants. Prognosis guarded. Further recommendations to follow. MMODL / IJN: [id number] /
[2021-02-02] MEDS: THEOPHYLLINE 24 HOUR 300 MG CAP.ER.24H PO SCH (21:01)
[2021-02-02] MEDS: REMDESIVIR 100 MG in SODIUM CHLORIDE 0.9% 250 ML IVPB SCH (21:01)
[2021-02-02] MEDS: MONTELUKAST 10 MG TAB PO SCH (21:01)
[2021-02-02] MEDS: METHYLSULFONYLMETHANE 1000 MG PO SCH (21:27)
[2021-02-02] MEDS: CALCIUM PO SCH (21:28)
[2021-02-02] MEDS: [UNRECOGNIZED DRUG - OTHER] PO SCH (21:28)
[2021-02-02] MEDS: CHOLECALCIFEROL PO SCH (21:28)
[2021-02-02] MEDS: MAGNESIUM PO SCH (21:28)
--- NOTE | 2021-02-03 01:55 | PN ---
PROGRESS NOTE DATE OF SERVICE: 02/02/2021 REASON FOR FOLLOWUP: COVID-19 pneumonia. INTERVAL HISTORY: The patient is afebrile. The patient is breathing slightly comfortably. The patient denies having any chest pain. Mentioned breathing slightly easily. No nausea, no vomiting. No abdominal pain, no diarrhea. PHYSICAL EXAMINATION: Blood pressure 140/84, pulse of 90, temperature 98.4. He is 96% on 2 L nasal cannula. General description is a middle-aged male up in the bed in no distress. Respiratory system: Unlabored breathing, decreased intensity of breath sounds. No wheeze. Heart S1, S2. Regular rate and rhythm. Abdomen soft, no tenderness. The right leg wound with some swelling, minimal redness and drainage. LABS: Hemoglobin is 13.1, white count 5.53, creatinine 0.6. DIAGNOSTIC IMPRESSION AND PLAN: 1. Patient with acute respiratory infection secondary to COVID-19 pneumonia. ( ) one week. The patient did have some clinical improvement, to continue with dexamethasone, Lovenox, zinc and ascorbic acid. 2. Right lower extremity wound, no cellulitis. Local care with dry Aquacel silver dressing. MMODL / IJN: [id number] /
[2021-02-03] MEDS: CALCIUM PO SCH ×2 (08:16→21:12)
[2021-02-03] MEDS: CHOLECALCIFEROL PO SCH ×2 (08:16→21:12)
[2021-02-03] MEDS: METOPROLOL TARTRATE 25 MG TAB PO SCH ×2 (08:16→21:14)
[2021-02-03] MEDS: dexAMETHasone 2 MG TAB PO SCH (08:16)
[2021-02-03] MEDS: CHOLECALCIFEROL 25 MCG (1000 IU) TABLET PO SCH (08:16)
[2021-02-03] MEDS: ASCORBIC ACID 500 MG TAB PO SCH ×2 (08:16→21:14)
[2021-02-03] MEDS: LORATADINE 10 MG TAB PO SCH (08:16)
[2021-02-03] MEDS: ZINC SULFATE 220 MG CAP PO SCH (08:16)
[2021-02-03] MEDS: hydroCHLOROthiazide 25 MG TAB PO SCH ×2 (08:16→21:14)
[2021-02-03] MEDS: ENOXAPARIN 40 MG/0.4 ML SYRINGE SQ SCH (08:16)
[2021-02-03] MEDS: [UNRECOGNIZED DRUG - OTHER] PO SCH ×2 (08:16→21:12)
[2021-02-03] MEDS: PANTOPRAZOLE 40 MG TABLET PO SCH (08:16)
[2021-02-03] MEDS: FERROUS SULFATE 325 MG TAB PO SCH (08:16)
[2021-02-03] MEDS: MAGNESIUM PO SCH ×2 (08:16→21:12)
[2021-02-03] MEDS: METHYLSULFONYLMETHANE 1000 MG PO SCH ×2 (08:17→21:12)
[2021-02-03] MEDS: ALBUTEROL HFA INHALER INHALATION SCH ×4 (08:59→21:38)
[2021-02-03 09:24] LABS: Basophils # (A) 0.01 X 10*3/uL (0.00-0.10); Basophils % (A) 0.2 %; Eosinophils # (A) 0 X 10*3/uL (0.04-0.35); Eosinophils % (A) 0 %; HCT 41.6 % (39.6-50.0); HGB 13.2 g/dL (13.0-17.0); Lymphocytes # (A) 1.14 X 10*3/uL (0.90-5.00); Lymphocytes % (A) 20.1 %; MCH 27.5 pg (27.0-32.0); MCHC 31.7 g/dL (32.0-37.0); MCV 86.7 fL (80.0-97.0); Mean Platelet Volume 11.3 fL (9.5-12.2); Monocytes # (A) 0.66 X 10*3/uL (0.20-1.00); Monocytes % (A) 11.6 %; Neutrophils # (A) 3.78 X 10*3/uL (1.80-7.70); Neutrophils % (A) 66.5 %; Platelet Count 209 X 10*3/uL (140-440); RDW 13.9 % (11.5-14.5); WBC 5.68 X 10*3/uL (4.50-10.00)
[2021-02-03 10:58] LABS: African American GFR (CKD) 137.8 (60.0-200.0); Albumin 3.3 g/dL (3.8-4.9); Albumin/Globulin Ratio 1.18 (1.60-3.17); Anion Gap 14.1 mmol/L (10.00-18.00); Blood Urea Nitrogen 14.4 mg/dL (9.0-27.0); Calcium 8.6 mg/dL (8.7-10.3); Carbon Dioxide 22.9 mmol/L (20.0-27.5); Globulin 2.8 g/dL (1.6-3.3); Non-African American GFR(CKD) 118.9 (60.0-200.0); Potassium 3.9 mmol/L (3.5-5.5); Total Bilirubin 0.2 mg/dL (0.30-1.20); Total Protein 6.1 g/dL (6.2-8.2)
--- NOTE | 2021-02-03 13:20 | P.PN ---
Subjective Progress Note Date: 02/03/21 This 50-year-old gentleman with a past medical history significant for asthma, hypertension and morbid obesity. He presented initially to the hospital with chief complaint of not feeling well, cough, shortness of breath and fever. He was found to be positive for COVID. Has not been vaccinated. We are asked to see the patient in consultation for ventricular tachycardia. At that time his potassium was 3.3. Potassium has been replaced and this morning's potassium level is 3.9. His verapamil was discontinued and he was initiated on beta roseanne which she is tolerating well. Echocardiogram with Doppler study showed low normal LV systolic function with ejection fraction between 50-55% with mild to moderately enlarged RV. Objective - Vital Signs Vital signs: Vital Signs Temp 97.6 F 02/03/21 10:00 Pulse 65 02/03/21 10:00 Resp 18 02/03/21 10:00 BP 115/70 02/03/21 10:00 Pulse Ox 92 L 02/03/21 10:00 Intake & Output 02/02/21 02/03/21 02/03/21 18:59 06:59 18:59 Output Total 500 Balance -500 Output: Urine 500 Other: Voiding Method Urinal Urinal # Voids 3 - Exam Thorough physical exam not completed secondary to limited evaluation/examination due to Covid19 - Labs CBC & Chem 7: 02/03/21 06:16 02/03/21 06:16 Labs: Abnormal Lab Results - Last 24 Hours (Table) 02/03/21 02/03/21 Range/Units 06:16 06:16 MCHC 31.7 L (32.0-37.0) g/dL Immature Gran # 0.09 H (0.00-0.04) X 10*3/uL Eosinophils # 0 L (0.04-0.35) X 10*3/uL BUN/Creatinine Ratio 24.00 H (12.00-20.00) Ratio Glucose 111 H (70-110) mg/dL Calcium 8.6 L (8.7-10.3) mg/dL Total Bilirubin 0.20 L (0.30-1.20) mg/dL Total Protein 6.1 L (6.2-8.2) g/dL Albumin 3.3 L (3.8-4.9) g/dL Albumin/Globulin Ratio 1.18 L (1.60-3.17) g/dL Assessment and Plan Assessment: #1 COVID pneumonia #2 nonsustained ventricular tachycardia the setting of hypokalemia #3 hypokalemia, resolved #4 asthma #5 hypertension #6 morbid obesity, BMI 77.8 Plan: From sheep boner perspective there's been no further episodes of nonsustained ventricular tachycardia. Continue metoprolol 25 mg by mouth twice a day. At this time we will follow the patient on an as-needed basis. Please do not hesitate to contact us with questions. REAL ESTATE ACCOUNTANT note has been reviewed, I agree with a documented findings and plan of care. Patient was seen and examined.
--- NOTE | 2021-02-03 15:52 | P.PN ---
Subjective Progress Note Date: 02/03/21 Principal diagnosis: COVID-19 pneumonia 50-year-old male, that I'm seeing in consultation. The patient is in room 471. The patient came to the emergency room, on February 01, complaining of shortness of breath. In addition, the patient had cough, fever, chills, poor oral intake, and dehydration. The patient hasn't been feeling well for at least 8-10 days. The patient was recently diagnosed as having coronavirus pneumonia. The patient tested positive on February 01. The patient has not received vaccination against coronavirus. The patient has history of asthma, obesity, and hypertension. He is a lifelong nontobacco user. He is currently not receiving any IV fluids. He is on nasal O2 at 5 L/m. White count 5.53, hemoglobin 13.4, hematocrit 42.1, platelet count 170,000. D-dimer is 0.55. Sodium 135, potassium 3.4, chlorides 96, CO2 26, anion gap 12, BUN 11, and creatinine 0.6. The patient's pro-calcitonin level is 0.04. Testing for coronavirus was positi ve on February 01. Chest x-ray shows diffuse bilateral infiltrates. The patient is seen today 02/03/2021 in follow-up on the regular medical floor. He is currently resting in bed. Awake and alert in no acute distress. Maintaining O2 saturations in the low 90s on 5 L/m per nasal cannula. He is afebrile. Hemodynamically stable. White count 5.6. Hemoglobin 13.2. Lymphocytes 1.14. Sodium 136. Potassium 3.9. Creatinine 0.6. He is continued on Lovenox, Decadron, vitamin supplements. This day #3 of Remdesivir. Objective - Vital Signs Vital signs: Vital Signs Temp 98.0 F 02/03/21 14:00 Pulse 61 02/03/21 14:00 Resp 16 02/03/21 14:00 BP 129/76 02/03/21 14:00 Pulse Ox 93 L 02/03/21 14:00 Intake & Output 02/02/21 02/03/21 02/03/21 18:59 06:59 18:59 Intake Total 1080 Output Total 1700 Balance -620 Intake: Oral 1080 Output: Urine 1700 Other: Voiding Method Urinal Urinal # Voids 3 - Exam GENERAL EXAM: Alert, pleasant, morbidly obese 50-year-old male patient, on 5 L nasal cannula, comfortable in no apparent distress. HEAD: Normocephalic. EYES: Normal reaction of pupils, equal size. NOSE: Clear with pink turbinates. THROAT: No erythema or exudates. NECK: No masses, no JVD. CHEST: No chest wall deformity. LUNGS: Equal air entry with coarse crackles in the posterior bases. CVS: S1 and S2 normal with no audible murmur, regular rhythm. ABDOMEN: No hepatosplenomegaly, normal bowel sounds, no guarding or rigidity. SPINE: No scoliosis or deformity SKIN: No rashes CENTRAL NERVOUS SYSTEM: No focal deficits, tone is normal in all 4 extremities. EXTREMITIES: There is trace peripheral edema. Changes of chronic venous stasis. No clubbing, no cyanosis. Peripheral pulses are intact. - Labs CBC & Chem 7: 02/03/21 06:16 02/03/21 06:16 Labs: Abnormal Lab Results - Last 24 Hours (Table) 02/03/21 02/03/21 Range/Units 06:16 06:16 MCHC 31.7 L (32.0-37.0) g/dL Immature Gran # 0.09 H (0.00-0.04) X 10*3/uL Eosinophils # 0 L (0.04-0.35) X 10*3/uL BUN/Creatinine Ratio 24.00 H (12.00-20.00) Ratio Glucose 111 H (70-110) mg/dL Calcium 8.6 L (8.7-10.3) mg/dL Total Bilirubin 0.20 L (0.30-1.20) mg/dL Total Protein 6.1 L (6.2-8.2) g/dL Albumin 3.3 L (3.8-4.9) g/dL Albumin/Globulin Ratio 1.18 L (1.60-3.17) g/dL Assessment and Plan Assessment: 1 Acute hypoxemic respiratory failure secondary to coronavirus associated pneumonia. Initiated on Remdesivir 2 Morbid obesity. The patient is bedbound/wheelchair bound 3 History of asthma. 4 History of hypertension. Plan: The patient was seen and evaluated Stable from the pulmonary standpoint Continued on Remdesivir, day #3 Continue Lovenox, Decadron, vitamin supplements Titrate the FiO2 as tolerated We will continue to follow I, the cosigning physician, performed a history & physical examination of the patient. Lungs sounds with coarse crackles in the posterior bases. Maintaining good O2 saturations in the 90s on 5 L/m per nasal cannula I discussed the assessment and plan of care with my nurse practitioner, Renetta Khan. I attest to the above note as dictated by her.
--- NOTE | 2021-02-03 19:44 | PN ---
PROGRESS NOTE DATE OF SERVICE: 02/03/2021 This 50-year-old gentleman who was admitted with acute COVID-19 pneumonia also had acute bilateral interstitial pneumonia and hypoxia. The patient is on 5 L nasal cannula. Patient is closely monitored. Multiple consultants are following the patient closely. The patient is started on remdesivir, day 2 today. No chest pain. No palpitations. No fever. Past medical history reviewed. REVIEW OF SYSTEMS: CARDIOVASCULAR SYSTEM: No angina. RESPIRATION: As mentioned earlier. GI: As mentioned earlier. : No dysuria. NERVOUS SYSTEM: No numbness, weakness. CURRENT MEDICATIONS: Reviewed. They include Xanax, vitamin C, vitamin D3, Hexadrol, Lovenox, iron sulfate, HydroDIURIL, Claritin, Lopressor, remdesivir. Rest of the medications and doses are reviewed. PHYSICAL EXAMINATION: Patient alert and oriented x3. Pulse is 65, blood pressure 117/72, respirations 16, temperature 97.9, pulse ox 92% on 5 L. HEENT: Conjunctivae normal. NECK: No jugular venous distention. CARDIOVASCULAR: S1, S2 muffled. RESPIRATION: Breath sounds diminished at the bases. A few scattered rhonchi and crackles. ABDOMEN: Soft, nontender. LEGS: No edema. No swelling. Patient has multiple wounds on both sides, both legs also. NERVOUS SYSTEM: No focal deficit. LAB STUDIES: WBC 5.6, hemoglobin 13.6, sodium ntd, potassium 3.9. 1.18. ASSESSMENT: 1. Acute COVID-19 infection with acute bilateral interstitial pneumonia with acute hypoxic respiratory failure, on supplemental oxygen. 2. On remdesivir. 3. Leukopenia. 4. Hyponatremia. 5. Hypokalemia. 6. Super morbid obesity with body mass index of 77.8. 7. Bilateral extremity wounds without any cellulitis. 8. History of asthma, chronic and intermittent. 9. Hypertension. 10.FULL CODE. RECOMMENDATIONS AND DISCUSSION: I recommend to continue current medications, continue with the monitoring, symptomatic treatment. Repeat labs. Continue the remdesivir. Continue the rest of the medications. Monitor blood sugars closely. Closely follow with multiple consultants. Prognosis is guarded because of multiple complex medical conditions. Further recommendations to follow. MMODL / IJN: [id number] / [facility]
[2021-02-03] MEDS: REMDESIVIR 100 MG in SODIUM CHLORIDE 0.9% 250 ML IVPB SCH (21:12)
[2021-02-03] MEDS: MONTELUKAST 10 MG TAB PO SCH (21:14)
[2021-02-03] MEDS: THEOPHYLLINE 24 HOUR 300 MG CAP.ER.24H PO SCH (21:14)
--- NOTE | 2021-02-03 23:44 | PN ---
PROGRESS NOTE DATE OF SERVICE: 02/03/2021 REASON FOR FOLLOWUP: 1. COVID-19 pneumonia. 2. Right leg wound. INTERVAL HISTORY: Patient is afebrile. The patient is breathing comfortably. The patient denies having any chest pain or shortness of breath. Occasional cough. No nausea, vomiting, no abdominal pain or diarrhea. PHYSICAL EXAMINATION: Blood pressure is 124/73 with a pulse of 84, temperature 97.8. He is 90% on 5 L nasal cannula. General description is a middle-aged male up in the bed in no distress. Respiratory system: Unlabored breathing, decreased intensity of breath sounds. Heart S1- S2 regular rate and rhythm. Abdomen soft, no tenderness. Right leg wound is currently dressed. No drainage on the dressing. LABS: Hemoglobin is 13.1, white count of 5.68, creatinine 0.7. DIAGNOSTIC IMPRESSION AND PLAN: 1. Patient with acute COVID-19 pneumonia in this patient with slow clinical improvement. Patient to continue with Remdesivir, dexamethasone, zinc and ascorbic acid. 2. Right leg wound. Local wound care with dry Aquacel dressing. Continue supportive care. MMODL / IJN: [id number] /
--- NOTE | 2021-02-04 07:51 | XR ---
EXAMINATION TYPE: XR chest 1V portable DATE OF EXAM: 02/04/2021 COMPARISON: 02/01/2021 HISTORY: Shortness of breath TECHNIQUE: Single frontal view of the chest is obtained. FINDINGS: Exam is limited by poor inspiratory effort. There are a few small partially consolidative opacity in the left lung base which are stable. The right lung remains clear. There is no large pleural effusion and there is no pneumothorax. Heart and pulmonary vasculature are normal for the technique. The osseous structures are intact. IMPRESSION: No change in the small left lung infiltrate.
[2021-02-04] MEDS: CALCIUM PO SCH (08:54)
[2021-02-04] MEDS: CHOLECALCIFEROL PO SCH (08:54)
[2021-02-04] MEDS: [UNRECOGNIZED DRUG - OTHER] PO SCH (08:54)
[2021-02-04] MEDS: MAGNESIUM PO SCH (08:54)
[2021-02-04] MEDS: METHYLSULFONYLMETHANE 1000 MG PO SCH ×2 (08:55→23:58)
[2021-02-04] MEDS: ENOXAPARIN 40 MG/0.4 ML SYRINGE SQ SCH (08:55)
[2021-02-04] MEDS: METOPROLOL TARTRATE 25 MG TAB PO SCH ×3 (08:56→22:22)
[2021-02-04] MEDS: PANTOPRAZOLE 40 MG TABLET PO SCH (08:56)
[2021-02-04] MEDS: FERROUS SULFATE 325 MG TAB PO SCH (08:56)
[2021-02-04] MEDS: LORATADINE 10 MG TAB PO SCH (08:56)
[2021-02-04] MEDS: CHOLECALCIFEROL 25 MCG (1000 IU) TABLET PO SCH (08:56)
[2021-02-04] MEDS: hydroCHLOROthiazide 25 MG TAB PO SCH (08:56)
[2021-02-04] MEDS: ASCORBIC ACID 500 MG TAB PO SCH ×2 (08:56→22:23)
[2021-02-04] MEDS: dexAMETHasone 2 MG TAB PO SCH (08:56)
[2021-02-04] MEDS: ZINC SULFATE 220 MG CAP PO SCH (08:56)
[2021-02-04] MEDS: ALBUTEROL HFA INHALER INHALATION SCH ×4 (09:42→19:26)
[2021-02-04 10:07] LABS: HCT 42.1 % (39.6-50.0); HGB 13.4 g/dL (13.0-17.0); MCH 27.7 pg (27.0-32.0); MCHC 31.8 g/dL (32.0-37.0); Platelet Count 246 X 10*3/uL (140-440); RBC 4.84 X 10*6/uL (4.40-5.60); WBC 8.38 X 10*3/uL (4.50-10.00)
[2021-02-04 11:16] LABS: Basophils # (A) 0.03 X 10*3/uL (0.00-0.10); Basophils % (A) 0.4 %; Eosinophils # (A) 0 X 10*3/uL (0.04-0.35); Eosinophils % (A) 0 %; Lymphocytes # (A) 1.77 X 10*3/uL (0.90-5.00); Lymphocytes % (A) 21.1 %; Monocytes # (A) 0.96 X 10*3/uL (0.20-1.00); Monocytes % (A) 11.5 %; Neutrophils # (A) 5.42 X 10*3/uL (1.80-7.70); Neutrophils % (A) 64.6 %
[2021-02-04 13:01] LABS: African American GFR (CKD) 133.9 (60.0-200.0); Anion Gap 17.4 mmol/L (10.00-18.00); BUN/Creat Ratio 25.31 Ratio (12.00-20.00); Blood Urea Nitrogen 16.3 mg/dL (9.0-27.0); C Reactive Protein 1.7 mg/dL (0.00-0.80); Calcium 8.8 mg/dL (8.7-10.3); Carbon Dioxide 19.4 mmol/L (20.0-27.5); Non-African American GFR(CKD) 115.5 (60.0-200.0)
[2021-02-04] MEDS ORDERED: EPINEPHrine 10 ML SYRINGE (0.1 MG/ML) ONE (15:00)
[2021-02-04] MEDS ORDERED: SODIUM BICARB 8.4% 50 ML SYR (1 MEQ/ML) ONE (15:00)
[2021-02-04] MEDS ORDERED: CALCIUM CHLORIDE 100 MG/ML 10 ML SYRINGE ONE (15:00)
[2021-02-04] MEDS ORDERED: ALTEPLASE 100 MG in EMPTY BAG 1 BAG IV ONE (15:45)
--- NOTE | 2021-02-04 16:03 | P.PN ---
Subjective Progress Note Date: 02/04/21 Principal diagnosis: Cardiac arrest, COVID-19 pneumonia On 02/04/2021 patient was seen in follow-up on medical surgical floor, he was more short of breath today according to the nursing staff, his oxygen flow was increased to 6 L, patient was dyspneic with conversation, but awake and alert, oriented 3, has a nonproductive cough. No hemoptysis or chest pain, he was admitted with COVID-19 pneumonia, he was started on Remdesivir, today is his fourth treatment of Remdesivir, in addition patient was on Decadron 6 mg daily, Lovenox 40 mg. Patient's respiratory rate was up to 38 breaths per minute, his d-dimer is increased to 4.05 on today's labs, white count is normal at 8.38, hemoglobin is 13.4, his electrolytes and renal profile were unremarkable, his LDH was down to 261, improved, and his CRP was down to 1.70. His pro calcitonin level from a few days ago was negative at 0.04. In view of patient's continued shortness of breath, and elevated d-dimer CT angiogram was ordered. However once the patient was taken downstairs he suffered acute cardiopulmonary arrest had to be emergently intubated and placed on mechanical ventilator, resuscitated and transferred to the intensive care unit. Objective - Vital Signs Vital signs: Vital Signs Temp 97.7 F 02/04/21 10:10 Pulse 57 L 02/04/21 10:10 Resp 18 02/04/21 10:10 BP 134/86 02/04/21 10:10 Pulse Ox 95 02/04/21 10:10 Intake & Output 02/03/21 02/04/21 02/04/21 18:59 06:59 18:59 Intake Total 1620 Output Total 2200 1150 500 Balance -580 -1150 -500 Intake: Oral 1620 Output: Urine 2200 1150 500 Other: Voiding Method Urinal Urinal # Voids 3 # Bowel Movements 0 - Exam GENERAL EXAM: Alert, dyspneic, tachypneic, 50-year-old white male on 6 L of oxygen, breathing 38 breaths per minute comfortable in no apparent distress. HEAD: Normocephalic/atraumatic. EYES: Normal reaction of pupils, equal size. Conjunctiva pink, sclera white. NOSE: Clear with pink turbinates. THROAT: No erythema or exudates. NECK: No masses, no JVD, no thyroid enlargement, no adenopathy. CHEST: No chest wall deformity. Symmetrical expansion. LUNGS: Equal air entry with diffuse rhonchi CVS: Regular rate and rhythm, normal S1 and S2, no gallops, no murmurs, no rubs ABDOMEN: Soft, nontender. No hepatosplenomegaly, normal bowel sounds, no guarding or rigidity. EXTREMITIES: No clubbing, chronic lower extremity edema no cyanosis, 2+ pulses and upper and lower extremities. MUSCULOSKELETAL: Muscle strength and tone normal. SPINE: No scoliosis or deformity SKIN: No rashes CENTRAL NERVOUS SYSTEM: Alert and oriented -3. No focal deficits, tone is normal in all 4 extremities. PSYCHIATRIC: Alert and oriented -3. Appropriate affect. Intact judgment and insight. - Labs CBC & Chem 7: 02/04/21 06:29 02/04/21 06:29 Labs: Abnormal Lab Results - Last 24 Hours (Table) 02/04/21 02/04/21 02/04/21 Range/Units 06:29 06:29 06:29 MCHC 31.8 L (32.0-37.0) g/dL Immature Gran # 0.20 H (0.00-0.04) X 10*3/uL Eosinophils # 0 L (0.04-0.35) X 10*3/uL D-Dimer 4.05 H (<0.60) mg/L FEU Carbon Dioxide 19.4 L (20.0-27.5) mmol/L BUN/Creatinine Ratio 25.31 H (12.00-20.00) Ratio Lactate Dehydrogenase 261 H (120-246) U/L C-Reactive Protein 1.70 H (0.00-0.80) mg/dL Assessment and Plan Plan: Assessment: #1. Acute cardiopulmonary arrest on 02/04/[address] department for [address] angiogram of the chest, patient was emergently intubated, resuscitated, and placed on mechanical ventilator on 02/04/2021 #2. Acute hypoxic respiratory failure related to acute COVID-19 related pneumonia, patient was admitted on 02/01/2021, he was within the window for Remdesivir, on which she was started on 02/01/2021. Non-vaccinated adult #3. Super morbid obesity with BMI of 77.8 kg/m #4. Elevated d-dimer, and patient was going for CT angiogram to rule out possibility of pulmonary embolism when he suffered cardiac arrest #5. Nonsustained ventricular tachycardia, was being followed by cardiology, and started on metoprolol yesterday, 2 sets of troponins were negative #6. History of hypertension #7. History of chronic bronchial asthma, unspecified Plan: Patient was sent down to CT department for CT angiogram of the chest and suffered cardiac arrest He was emergently intubated, resuscitated, and transferred to the intensive care unit Lines will be placed, he'll be sedated and paralyzed Remdesivir will be discontinued We'll continue with Decadron, 1 dose of alteplase has been ordered Obtain follow-up chest x-ray after line placement Daily blood work including CBC, CMP, d-dimer Overall prognosis is extremely poor and guarded We'll continue to closely follow Family will be updated I performed a history & physical examination of the patient and discussed their management with my nurse practitioner, Imelda Thompson. I reviewed the nurse practitioner's note and agree with the documented findings and plan of care. Lung sounds are positive for diminished breath sounds throughout the lung [place]. The findings and the impression was discussed with the patient. I attest to the documentation by the nurse practitioner. Time with Patient: Greater than 30
[2021-02-04] MEDS ORDERED: CISATRACURIUM 200 MG in SODIUM CHLORIDE 0.9% 180 ML IV SCH (16:15)
[2021-02-04 16:30] LABS: Glucose,Whole Blood 356 mg/dL (75-99)
[2021-02-04 16:31] LABS: ABG Base Excess -11.3 mmol/L; ABG HCO3 20 mmol/L (21-25); ABG Oxygen Saturation 92.1 % (94-97); ABG PO2 101 mmHg (83-108); ABG TCO2 23 mmol/L (19-24)
[2021-02-04] MEDS: NOREPINEPHRINE 32 MG in SODIUM CHLORIDE 0.9% 218 ML IV SCH ×2 (16:35→20:57)
[2021-02-04 16:37] LABS: ABG PCO2 84 mmHg (35-45); ABG PH 6.99 (7.35-7.45)
[2021-02-04] MEDS ORDERED: SODIUM BICARB 8.4% 50 ML SYR (1 MEQ/ML) IV STA (16:39)
--- NOTE | 2021-02-04 16:42 | XR ---
EXAMINATION TYPE: XR chest 1V DATE OF EXAM: 02/04/2021 COMPARISON: Today HISTORY: Respiratory failure TECHNIQUE: Single view FINDINGS: Endotracheal tube is 5 cm from the tamir. There is some mild interstitial infiltrate and a telectasis at the lung bases. No obvious heart failure. Heart size is normal. There is left side cent ral venous catheter with tip in the superior vena cava. IMPRESSION: Endotracheal tube in good position. Interstitial infiltrates and atelectasis at the lung bases without significant change.
[2021-02-04 17:26] VITALS: TEMP 98.9
[2021-02-04] MEDS ORDERED: SODIUM CHLORIDE 0.9% 2,000 ML IV ONE (17:27)
[2021-02-04] MEDS ORDERED: SODIUM CHLORIDE 0.9% 1,000 ML IV SCH (17:30)
--- NOTE | 2021-02-04 17:51 | PN ---
PROGRESS NOTE DATE OF SERVICE: 02/04/2021 REASON FOR FOLLOWUP: Covid 19 pneumonia. INTERVAL HISTORY: Patient is afebrile. The patient is complaining of more shortness of breath. However, he is not requiring more oxygen compared to yesterday. The patient denies any chest pain. No worsening cough or sputum production. No abdominal pain or diarrhea. PHYSICAL EXAMINATION: Blood pressure 134/86, pulse of 57, temperature is 97.7. He is 95% on 5 L nasal cannula. General description is a middle-aged male up in the bed in no distress. Respiratory system: Unlabored breathing, decreased intensity in breath sounds. No wheeze. Heart S1, S2. Regular rate and rhythm. Abdomen soft, no tenderness. LABS: Hemoglobin is 13.1, white count 8.3 and D. dimer did jump to 4.05. DIAGNOSTIC IMPRESSION AND PLAN: 1. Patient with acute respiratory failure secondary to COVID-19 pneumonia. The patient complaining of more shortness of breath. Chest x-ray did not show any worsening. Currently covered with Remdesivir, dexamethasone, Lovenox, zinc and ascorbic acid to continue along with respiratory support. 2. Right leg wound. Local wound care with Aquacel Silver dressing. No need for systemic antibiotic therapy. MMODL / IJN: [id number] /
[2021-02-04 18:26] LABS: HCT 54.1 % (39.0-53.0); HGB 16.3 gm/dL (13.0-17.5); Hypochromasia Marked; MCH 28.6 pg (25.0-35.0); MCHC 30.2 g/dL (31.0-37.0); Mean Platelet Volume 9.5; Platelet Count 329 k/uL (150-450); RBC 5.72 m/uL (4.30-5.90); RDW 14.3 % (11.5-15.5); WBC 26.2 k/uL (3.8-10.6)
[2021-02-04 18:29] LABS: Albumin 2.9 g/dL (3.5-5.0); Calcium 8.4 mg/dL (8.4-10.2); Potassium 5.6 mmol/L (3.5-5.1); Total Bilirubin 0.6 mg/dL (0.2-1.3); Total Protein 5.8 g/dL (6.3-8.2)
[2021-02-04 18:30] LABS: MCV 94.6 fL (80.0-100.0)
[2021-02-04 18:42] LABS: Band Neutrophils % 10 %; Metamyelocytes # (M) 0.52 k/uL (0); Metamyelocytes % 2 %; Monocytes # (M) 1.31 k/uL (0-1.0); Neutrophils % (M) 62 %; Nucleated Red Blood Cells 0 /100 WBC (0-0); Total Cells Counted 100
[2021-02-04 19:09] LABS: ABG Base Excess -7.1 mmol/L; ABG HCO3 22 mmol/L (21-25); ABG Oxygen Saturation 98.4 % (94-97); ABG PCO2 70 mmHg (35-45); ABG PO2 180 mmHg (83-108); ABG TCO2 24 mmol/L (19-24)
[2021-02-04 19:12] LABS: ABG PH 7.11 (7.35-7.45); Allen Test Performed? no
--- NOTE | 2021-02-04 19:15 | PN ---
PROGRESS NOTE DATE OF SERVICE: 02/04/2021 This 50-year-old gentleman admitted with acute Covid 19 bilateral pneumonia also had elevated D-dimer. While waiting for the CT angio of the chest, the patient apparently developed cardiac arrest and was resuscitated on and off for 20 minutes. The patient also developed hypotension. Patient monitored closely and transferred to ICU at this time. The patient mechanically intubated. The patient unresponsive. The chest x-ray showed extensive bilateral infiltrates indicative of Covid 19 pneumonia, multiple consultants are following the patient closely. Past medical history reviewed. REVIEW OF SYSTEMS: Could not be taken. The patient is mechanically intubated. CURRENT MEDICATIONS: Reviewed and include: Ventolin, vitamin C, Peridex, vitamin D3, dexamethasone, Lovenox. Doses and other medications reviewed. PHYSICAL EXAMINATION: Patient is mechanically sedated. Pulse 130, irregular. Blood pressure 83/63, respiration 34, temperature 98.2. Pulse ox 100 percent on mechanical ventilation. Vent settings are noted. HEENT: Conjunctivae normal. NECK: No JVD. CARDIOVASCULAR: S1, S2 muffled. RESPIRATORY: Breath sounds diminished in the bases. Scattered rhonchi and crackles. ABDOMEN: Soft, obese, nontender. LEGS are no edema. No swelling. NERVOUS SYSTEM: No focal deficits. LABORATORY DATA: WBC 8.3, and hemoglobin is 10.2. D-dimer is 4.05. CRP is 1710. ASSESSMENT: 1. Acute Covid 19 infection, acute bilateral interstitial pneumonia with acute hypoxic respiratory failure on mechanical ventilation. 2. Cardiorespiratory arrest secondary to Covid 19. 3. On Remdesivir. 4. Elevated D-dimer, possible pulmonary embolism or deep vein thrombosis. 5. Leukopenia. 6. Hyponatremia. 7. Hypokalemia. 8. Super morbid obesity, BMI of 77.8. 9. Bilateral extremity wound without any cellulitis. 10.History of asthma, chronic intermittent. 11.Hypertension. 12.FULL CODE. RECOMMENDATIONS AND DISCUSSION: Recommend to continue current medications, continue mechanical ventilation. Continue with current medications. Continue with bronchodilators. Continue with Lovenox. The patient has significant acute respiratory acidosis. Continue the rest of medications. Prognosis extremely guarded. The family would like the patient as NO CODE, NO RE- INTUBATION. Prognosis guarded. Further recommendations to follow. MMODL / IJN: [id number] /
[2021-02-04] MEDS ORDERED: SODIUM CHLORIDE 0.9% 150 ML with VASOPRESSIN 60 UNIT IV SCH ×2 (19:30)
--- NOTE | 2021-02-04 19:39 | US ---
EXAMINATION TYPE: US venous doppler duplex LE DATE OF EXAM: 02/04/2021 7:29 PM COMPARISON: NONE CLINICAL HISTORY: elevated d-dimer. Elevated D Dimer. ICU covid patient on ventilator. SIDE PERFORMED: Bilateral TECHNIQUE: The lower extremity deep venous system is examined utilizing real time linear array sonog christopher with graded compression, doppler sonography and color-flow sonography. VESSELS IMAGED: Common Femoral Vein Deep Femoral Vein Greater Saphenous Vein * Femoral Vein (* superficial vessels) Exam is extremely limited due to patient body habitus and large panis. Patient weighs 542 lbs. RN pre sent for exam to assist with access to groin. Right Leg: Unable to visualize popliteal vein. Color flow seen in CFV, GSV, prox-mid femoral vein. T hese vein segments appear to compress. Limited evaluation of distal femoral vein due to body habitus. Left Leg: Unable to visualize popliteal vein. Veins imaged appear to compress and show color flow. IMPRESSION: Exam somewhat limited. No evidence of deep vein thrombosis.
--- NOTE | 2021-02-04 20:06 | PCN ---
PROCEDURE NOTE PROCEDURE NOTES: FIRST PROCEDURE: Placement of right radial arterial line. PREOPERATIVE DIAGNOSIS: Frequent blood draws and blood gas monitoring. POSTOPERATIVE DIAGNOSIS: Frequent blood draws and blood gas monitoring. SERGEANT OF OFFICERS: Dr. Velasquez. PROCEDURE DESCRIPTION: There was informed consent. A universal time-out was completed verifying correct patient, procedure, site, positioning, and implant(s) or special equipment if applicable. Jovan's test was performed to ensure adequate perfusion. The patient's right wrist was prepped and draped in sterile fashion. 1% Lidocaine was used to anesthetize the area. An 18G Arrow arterial line was introduced into the right radial artery. The catheter was threaded over the guide wire and the needle was removed with appropriate pulsatile blood return. There was good blood return and waveform. Blood loss was minimal. The catheter was then sutured in place to the skin and a sterile dressing was applied. Perfusion to the extremity distal to the point of catheter insertion was checked and found to be adequate. The patient tolerated the procedure well and there were no immediate complications. SECOND PROCEDURE: Placement of left internal jugular triple-lumen catheter. PREOPERATIVE DIAGNOSIS: Administration of fluids and pressors. POSTOPERATIVE DIAGNOSIS: Administration of fluids and pressors. SERGEANT OF OFFICERS: Dr. Velasquez. PROCEDURE DESCRIPTION: A time-out was completed verifying correct patient, procedure, site, positioning, and implant(s) or special equipment if applicable. The patient was placed in a dependent position appropriate for triple lumen catheter placement based on the vein to be cannulated. The patient's left neck was prepped and draped in sterile fashion for the posterior approach. 1% Lidocaine was used to anesthetize the surrounding skin area. A triple lumen 9F Cordis catheter was introduced into the left internal jugular vein using Seldinger technique. The catheter was threaded smoothly over the guide wire and appropriate blood return was obtained. There was good blood return from all 3 ports. Each lumen of the catheter was evacuated of air and flushed with sterile saline. The catheter was then sutured in place to the skin and a sterile dressing applied by the nurse. Perfusion to the extremity distal to the point of catheter insertion was checked and found to be adequate. There was no immediate complication. A chest x-ray was ordered to check placement and rule out pneumothorax. MMODL / IJN: [id number] /
[2021-02-04] MEDS ORDERED: CHLORHEXIDINE GLUCONATE 15 ML CUP MUCOUS MEM SCH (21:00)
[2021-02-04] MEDS: ARTIFICIAL TEARS-HYPROMELLOSE DROPS 15 ML BTL BOTH EYES SCH (21:15)
[2021-02-04 21:44] VITALS: RESP 38
[2021-02-04 23:55] LABS: Glucose,Whole Blood 189 mg/dL (75-99)
[2021-02-05] MEDS ORDERED: INSULIN ASPART (NovoLOG) 100 UNIT/ML VIAL SQ SCH
[2021-02-05] MEDS: ARTIFICIAL TEARS-HYPROMELLOSE DROPS 15 ML BTL BOTH EYES SCH
[2021-02-05 00:19] VITALS: BP 138/105; PULSE 133
[2021-02-05] MEDS ORDERED: PANTOPRAZOLE 40 MG/10 ML VIAL IVP SCH (09:00)
[2021-02-05] MEDS ORDERED: DEXAMETHASONE SOD PHOSPHATE 10 MG/ML 1 ML VIAL IVP SCH (09:00)
== END 2021-02-05 00:55 | disposition expired | DRG 208 ==
LOC: EC 11:54 → 6NMEDSUR 13:52 → 4SSUR 19:52 → OBSVTOIN 02-02 11:20 → 2SICU 02-04 15:51
PROVIDERS: ADMIT Hospitalist; ATTEND Hospitalist
PROC: XW033E6 Introduction of Etesevimab Monoclonal Antibody into Peripheral Vein, Percutaneous Approach, New Technology Group 6 (ICD-10-PCS; 2021-02-01)
PROC: XW033F6 Introduction of Bamlanivimab Monoclonal Antibody into Peripheral Vein, Percutaneous Approach, New Technology Group 6 (ICD-10-PCS; 2021-02-01)
PROC: XW033E5 Introduction of Remdesivir Anti-infective into Peripheral Vein, Percutaneous Approach, New Technology Group 5 (ICD-10-PCS; 2021-02-01)
PROC: 0BH17EZ Insertion of Endotracheal Airway into Trachea, Via Natural or Artificial Opening (ICD-10-PCS; principal; 2021-02-04)
PROC: 5A1935Z Respiratory Ventilation, Less than 24 Consecutive Hours (ICD-10-PCS; principal; 2021-02-04)
PROC: 4A133J1 Monitoring of Arterial Pulse, Peripheral, Percutaneous Approach (ICD-10-PCS; 2021-02-04)
PROC: 3E043XZ Introduction of Vasopressor into Central Vein, Percutaneous Approach (ICD-10-PCS; 2021-02-04)
PROC: 4A133B1 Monitoring of Arterial Pressure, Peripheral, Percutaneous Approach (ICD-10-PCS; 2021-02-04)
PROC: 02HV33Z Insertion of Infusion Device into Superior Vena Cava, Percutaneous Approach (ICD-10-PCS; 2021-02-04)
PROC: 0D9670Z Drainage of Stomach with Drainage Device, Via Natural or Artificial Opening (ICD-10-PCS; 2021-02-04)
PROC: 03HY32Z Insertion of Monitoring Device into Upper Artery, Percutaneous Approach (ICD-10-PCS; 2021-02-04)
DX: U07.1 COVID-19 (principal); J12.82 Pneumonia due to coronavirus disease 2019; J96.01 Acute respiratory failure with hypoxia; I47.2 Ventricular tachycardia; E87.2 Acidosis; E87.1 Hypo-osmolality and hyponatremia; Z68.45 Body mass index [BMI] 70 or greater, adult; L97.819 Non-pressure chronic ulcer of other part of right lower leg with unspecified severity; I95.9 Hypotension, unspecified; I83.018 Varicose veins of right lower extremity with ulcer other part of lower leg; E66.01 Morbid (severe) obesity due to excess calories; I46.9 Cardiac arrest, cause unspecified; Z66 Do not resuscitate; I10 Essential (primary) hypertension; D72.810 Lymphocytopenia; E87.6 Hypokalemia; E86.0 Dehydration; J45.20 Mild intermittent asthma, uncomplicated; I89.0 Lymphedema, not elsewhere classified; R79.89 Other specified abnormal findings of blood chemistry; Z79.899 Other long term (current) drug therapy; Z74.01 Bed confinement status; Z99.3 Dependence on wheelchair; Z88.5 Allergy status to narcotic agent; Z91.014 Allergy to mammalian meats; Z91.013 Allergy to seafood; Z91.018 Allergy to other foods
CPT/HCPCS: 36415; 71045; 71046; 80048; 80053; 82728; 82805; 83615; 83735; 84145; 84484; 85025; 85379; 86140; 87635; 93005; 93306; 93970; 94640; 94760; 99285